=== PATIENT | male | born 1985 | race Caucasian/White ===

== ENCOUNTER 2016-10-09 11:26 | Observation (INO) | payer SELFPAY ==
[~2016-10-09] VITALS: Ht 188 cm; Wt 101.5 kg
--- NOTE | ~2016-10-09 | ER ---
[facility] AGE: 31 Y [address] ROOM: [place] [address] [place] [facility] [place]: 10[place]09[place] ER/Outpatient Report DISCHARGE DATE: FAMILY PHYSICIAN: PHYSICIAN, NO ATTENDING PHYSICIAN: Vicky Forte TIME OF ARRIVAL: 11:26. TIME OF EVALUATION: 11:35. CHIEF COMPLAINT: Alcohol abuse. HISTORY OF PRESENT ILLNESS: The patient is a 31-year-old male, who presented to Emergency Department today with a chief complaint of alcohol abuse. He reports that he was recently kicked out of his Mom's house in [place] due to drinking. He has been going through divorce. He does report that he has been vomiting blood for the past 2 weeks. He reports he is depressed and anxious. He denies any suicidal ideations. No homicidal ideations. No visual hallucinations. No auditory hallucinations. He does report that he is having some sleep difficulties and has not slept in 5 days. He does report some nausea and vomiting. He denies any diarrhea or constipation. He denies any pain currently. PAST MEDICAL HISTORY: 1. ADHD. 2. Seizure disorder with alcohol withdrawl, bipolar depression. PAST SURGICAL HISTORY: Broken foot. SOCIAL HISTORY: The patient denies any tobacco use. He reports he drinks 750 mL of vodka a day, at least one to two bottles. He denies any illicit drug use. ALLERGIES: NO KNOWN DRUG ALLERGIES. MEDICATIONS: Please see list. PRIMARY CARE DOCTOR: None. PATIENT'S NAME: [facility]ASSY [facility] AGE: 31 Y [address] ROOM: [place] [address] [place] [facility] [place]: 10/09/2016 ER/Outpatient Report DISCHARGE DATE: FAMILY PHYSICIAN: PHYSICIAN, NO ATTENDING PHYSICIAN: Vicky Forte REVIEW OF SYSTEMS: All systems are reviewed by myself, and are negative with the exception of those discussed in HPI and past medical history. PHYSICAL EXAMINATION: VITAL SIGNS: Weight is 99.4 kg. Blood pressure was 169/107, pulse was 115, respiratory rate was 18, temperature was 99.2, and oxygen saturation was 94% on room air. GENERAL: The patient is a 31-year-old male, who appears intoxicated. He is very emotional. HEENT: Normocephalic and atraumatic. Pupils are equal, round, and reactive to light. Extraocular motions are intact. Nares are patent bilaterally. Mucous membranes are moist. NECK: Supple. There is no nuchal rigidity. CARDIOVASCULAR: Tachycardic. No murmurs, rubs, or gallops. LUNGS: Clear to auscultation bilaterally. No wheezes, rales, or rhonchi. ABDOMEN: Soft, nontender, and nondistended. No rebound, rigidity, or guarding. MUSCULOSKELETAL: The patient moves all 4 extremities. SKIN: Warm and dry. There are no rashes or lesions noted. LABORATORY DATA AND DIAGNOSTIC STUDIES: Labs and x-rays are obtained. CBC is unremarkable except for hemoglobin of 17.7. Venous blood gas 7.40/50/55/31/5.1. Lactate is 4.0. Coags are normal. Urine drug screen is positive. Benzodiazepine was otherwise negative. EKG is obtained, and is interpreted by myself at 12:09. It showed sinus tachycardia with a rate of 108, normal axis, no ST elevation or ST depression or T-wave inversions. Urinalysis was unremarkable. CMP was unremarkable except for AST of 66 and ALT of 80. EtOH is 0.315. Lipase is normal. CK is normal. Acetaminophen and salicylate are normal. IMPRESSION: 1. Alcohol intoxication. 2. Reported hematemesis. 3. Lactic acidosis. 4. Elevated liver enzymes. 5. Depression. 6. Initial visit. EMERGENCY DEPARTMENT COURSE: The patient was brought back to the Examination Room. Seen and evaluated by myself. IV is established. Laboratory analysis and imaging are obtained as described above. The patient is given a liter of normal saline. He is given a liter of a banana bag. He was given 4 mg of Zofran IV. He was given 1 mg PATIENT'S NAME: KODI MADERA [facility] AGE: 31 Y [address] ROOM: [id number] [place] [id number] [place] [facility] [place]: 10/09/2016 ER/Outpatient Report DISCHARGE DATE: FAMILY PHYSICIAN: PHYSICIAN, NO ATTENDING PHYSICIAN: Vicky Forte IV for anxiety, as well as another milligram of Ativan IV. I have discussed results with the patient and his friends, who are at the bedside. The patient is reporting that he would like to quit. I have contacted the hospitalist, Dr. Forte, who is on-call. He does agree to accept the patient for further evaluation, treatment, and management. DISPOSITION: The patient is admitted under the care of Hospitalist Service and Dr. Forte in stable condition. DO CHA STEPHEN/selenel /[id number] d: 10/09/162005 t: 10/10/16 0937, OUTPATIENT REPORT
--- NOTE | ~2016-10-09 | DS ---
PATIENT'S NAME: KODI MADERA [facility] AGE: 31 Y [address] ROOM: [id number] [place], [place] [address] LOCATION: [facility] [place] ADMIT DATE: 10/09/2016 Discharge Summary DISCHARGE DATE: 10/11/2016 FAMILY PHYSICIAN: Jair Garcia MD ATTENDING PHYSICIAN: Vicky Forte FINAL DIAGNOSES: 1. Acute alcohol intoxication. 2. Alcohol dependence and abuse. 3. Attention-deficit hyperactivity disorder. 4. Gastritis with hematemesis. 5. Depression. HISTORY OF PRESENT ILLNESS: Please see the history and physical dictated by Dr. Forte for full details. In short, patient presented to the emergency room with a blood alcohol level greater than 0.3. He had been kicked out of his mother's home and was essentially homeless. He did state that he would be willing to attend treatment. LABORATORY DATA: On admission, ABG, pH 7.40, pCO2 50, PO2 55. Sodium 145, potassium 4, chloride 106, CO2 27, BUN 14, and creatinine 1. Alkaline phosphatase 70, AST 66, ALT 80. Alcohol level 0.315. Lipase 199, CK 203. Acetaminophen less than 2. Salicylate less than 2.8. These values were stable or improved on discharge. On admission, white blood cell count 4.7, hemoglobin 17.7, hematocrit 51.8, platelet count 192. It was felt that he was dehydrated. On the second hospital day, his white blood cell count 3, hemoglobin 14.3, hematocrit 42.1, platelet count 153. HOSPITAL COURSE: The patient was admitted to the hospital with acute intoxication. He was admitted and placed on the CIWA protocol using Valium. He was given a banana bag. He was seen in evaluation by GI because of the hematemesis. He was placed on an IV Protonix drip. A decision was made that they would take him to do an EGD. EGD did show irritation erosions with some petechial hemorrhage. Please see Dr. Cottrell's op note for full details. In the meantime, the patient did agree to have someone become his power of immigration attorney, Simba Lagos. Arrangements were made for him to transfer to an acute rehab setting. He is going to an [facility] for inpatient treatment. At this point, the patient does agree to attend, . He is going to be going to the [facility] in [place] which is a 4-month program. DISCHARGE MEDICATIONS: 1. Valium 5 mg at bedtime, starting on the . 2. Depakote 500 mg twice daily. PATIENT'S NAME: KODI MADERA [facility] AGE: 31 Y [address] ROOM: [place] [address] LOCATION: [facility] [place] ADMIT DATE: 10/09/2016 Discharge Summary DISCHARGE DATE: 10/11/2016 FAMILY PHYSICIAN: Jair Garcia MD ATTENDING PHYSICIAN: Vicky Forte 3. Protonix 40 mg twice daily. 4. Claritin-D daily as needed. 5. Carafate 1 g before meals and at bedtime. 6. Multivitamin daily. OVERALL PROGNOSIS: At discharge is fair. WANDA GARZON MD LAW/modl /[id number] d: 10/11/161801 t: 10/11/16 1834, DISCHARGE SUMMARY
--- NOTE | ~2016-10-09 | CON ---
PATIENT'S NAME: KODI MADERA [facility] AGE: 31 Y [address] ROOM: [address] [address] LOCATION: [facility] [place] ADMIT DATE: 10/09/2016 Consultation DISCHARGE DATE: FAMILY PHYSICIAN: Jair Garcia MD ATTENDING PHYSICIAN: Vicky Forte DATE OF CONSULTATION: 10/10/2016 DATA: This is a 31-year-old male, currently admitted to [facility]. Consultation requested by Dr. Forte. DIAGNOSES: At the time of this evaluation are: 1. Alcohol-induced disorder. 2. Alcohol-induced depression. 3. Prior history of attention-deficit hyperactivity disorder. 4. Prior history of [place] abuse. RECOMMENDATIONS: 1. The patient is not, at the present time, psychotic, manic, hypomanic, suicidal, or homicidal. He may be discharged whenever he is medically cleared. 2. The patient had a very recent chemical dependency evaluation that recommended rehab. He is already working with [facility] for placement. 3. He already has an appointment with people in [place] for medication management and his psychiatric other issues, so he seems to be covered for those things. What he needs again is rehab so he can stop drinking. HISTORY: This is a known patient for this provider. I saw him once before in November of last year for another episode of drinking. Quite regretfully, he has not gone to rehab since then even though it would have been recommended. The patient, this time around, is telling that he has bipolar disorder, has been diagnosed with bipolar disorder. Nevertheless, the longest that he has been ever hypomanic is 3 or 4 days, not meeting full criteria actually for bipolar II, even less bipolar I. The other part is he has been drinking all this time, so it is difficult to make that kind of assertion or diagnosis in this case. The patient, without drinking, has not been manic, hypomanic, or psychotic. No issues with obsession and compulsion, eating disorder, post-traumatization, or gambling. PAST PSYCHIATRIC HISTORY: Never been hospitalized in a psychiatric facility. No issues with PATIENT'S NAME: KODI MADERA [facility] AGE: 31 Y [address] ROOM: [id number] [place] [id number] LOCATION: [facility] [place] ADMIT DATE: 10/09/2016 Consultation DISCHARGE DATE: FAMILY PHYSICIAN: Jair Garcia MD ATTENDING PHYSICIAN: Vicky Forteity. MEDICAL HISTORY: Per History and Physical. PERSONAL HISTORY: . Full-time employee. Living in [place]. HISTORY OF ABUSE: The patient has never been abused physically, sexually, or psychologically. FAMILY HISTORY: Noncontributory. MENTAL STATUS EXAMINATION: A , young man. Cooperative. Good hygiene. Good eye contact. No psychomotor agitation or retardation. Speech is normal in volume, tone, and production. Mood is described as good, assessed as neutral. Affect is broad and appropriate to thought content. Thought content is relevant. Patient denying any suicidal or homicidal ideation, denying any auditory or visual hallucination, denying delusional thoughts. Thought process coherent, congruent. No loosening of association. Insight and judgment seem to be formally intact, just tainted while intoxicated. Memory is within normal limits. He is alert and oriented, and intelligence is average. STRENGTHS: Intelligence, access to service. BARRIERS: Just substance use. CLEO VERMA MD HG/modl /[id number] d: 10/10/16 1242 t: 10/11/16 0933, CONSULTATION REPORT
--- NOTE | ~2016-10-09 | CON ---
PATIENT'S NAME: CASSY [facility] AGE: 31 Y [address] ROOM: [place] [address] LOCATION: [facility] [place] ADMIT DATE: 10/09/2016 Consultation DISCHARGE DATE: FAMILY PHYSICIAN: PHYSICIAN, NO ATTENDING PHYSICIAN: Vicky Forte DATE OF CONSULTATION: 10/09/2016 REFERRING PHYSICIAN: Vicky Forte MD REASON FOR CONSULTATION: Possible hematemesis. HISTORY OF PRESENT ILLNESS: The patient is a pleasant 31-year-old white male with past medical history significant for bipolar depression, seizure disorders from alcohol withdrawal, as well as prolonged history of alcoholism. He has been referred to us for evaluation of hematemesis. According to the patient, he has had some bleeding from the mouth. He also has had at least 7 episodes of hematemesis. He brings up blood with vomitus. He says today, his bowel movement was dark in color and almost appeared to be dark blood. He has some mild epigastric discomfort. He has some significant heartburn also. ALLERGIES: NO KNOWN DRUG ALLERGIES. MEDICATIONS: As per MAR. PAST SURGICAL HISTORY: Significant for broken foot surgery. SOCIAL HISTORY: He has not smoked recently. He has 750 mL of vodka a day. He has a 1-1/2 year history of heavy drinking since his diagnosis. He has been depressed also since then. FAMILY HISTORY: Noncontributory to this problem. PHYSICAL EXAMINATION: GENERAL: Today, he is alert and awake. He appears to be in no acute distress. VITAL SIGNS: His weight is 99.4 kilos. Pulse of 115 per minute, respiratory rate of 18, blood pressure of 164/107, and oxygen saturation of 94%. HEENT: Revealed no pallor. No icterus. PATIENT'S NAME: CASSY [facility] AGE: 31 Y [address] ROOM: [place] [address] LOC[place]: [facility] [place] ADMIT DATE: 10/09/2016 Consultation DISCHARGE DATE: FAMILY PHYSICIAN: PHYSICIAN, NO ATTENDING PHYSICIAN: Vicky Forte CARDIOVASCULAR: S1 and S2. CHEST: Clear to auscultation bilaterally. No wheezes. No rhonchi. ABDOMEN: Soft and nontender. I do not feel any masses. MUSCULOSKELETAL: No obvious injuries or deformities are seen. NEUROLOGICAL: Grossly nonfocal. LABORATORY DATA: Labs done today showed UA with microscopy that is negative. Complete metabolic screen showed sodium of 140, potassium of 4.0, chloride of 106, bicarb of 27, BUN of 14, creatinine of 1, albumin of 4.0, total bilirubin of 0.4, ALT of 80, AST of 66, and alkaline phosphatase of 70. Alcohol level was 0.315. Lipase is 199. Acetaminophen and salicylates are negative. Urine tox screen is positive for benzodiazepine. Complete blood count showed WBC of 4.7, hemoglobin of 17.7, hematocrit of 51.8, and platelet count of 192. Blood gas shows a pH of 7.4, pO2 of 55, and pCO2 of 50. Lactate is high at 4. IMPRESSION AND PLAN: The patient with a history of alcoholism, presenting with what appears to be hematemesis. He also had some dark stools. There is no active profuse bleeding. His hemoglobin is stable. He is hemodynamically stable. However, in view of the above, we will be proceeding with an upper endoscopy in the morning. The procedure of endoscopy was explained in detail to the patient. All risks including, but not limited to bleeding, perforation, and possible need for surgery were explained. Informed consent was then obtained. MD MADINA AGEE/modl /[id number] d: 10/09/16 2321 t: 10/10/16 1741, CONSULTATION REPORT
--- NOTE | ~2016-10-09 | HP ---
PATIENT'S NAME: [facility] AGE: 31 Y [address] ROOM: [place] [address] LOCATION: [facility] [place] ADMIT DATE: 10/09/2016 History & Physical DISCHARGE DATE: FAMILY PHYSICIAN: PHYSICIAN, NO ATTENDING PHYSICIAN: Vicky Forte DATE OF SERVICE: CHIEF COMPLAINT: Alcohol intoxication. HISTORY OF PRESENT ILLNESS: This is a 31-year-old male with a known history of alcohol abuse and daily alcohol drinking over the past a year and a year and half and recurrent admissions in the past few months for attempts to detoxify. He presents with the same complaint again. The patient was brought to the emergency room with a friend, appearing to be intoxicated. The patient's blood alcohol level was greater than 300 today. During my visitation, the patient is awake, alert, oriented, cooperative, and appears coherent although, appears a little bit intoxicated. The patient tells me that again he truly tried to quit this time, which has been the case in his previous admissions as well. The patient due to his alcohol problems had been essentially homeless and has nowhere else to go if he was to be discharged from the emergency room as well. The patient also mentions having occasional evidences of blood-tinged emesis with his binge drinking. However, he denies any dizziness, lightheadedness, or any signs or symptoms of hemodynamically significant blood loss. Denies any diarrhea, dark looking or tarry stools. The patient otherwise denies any chest pain, shortness of breath, cough, or abdominal pain. Denies any fevers or chills. PAST MEDICAL HISTORY: Alcohol abuse and bipolar disorder. SOCIAL HISTORY: The patient is and has 2 kids. Denies any smoking or drug use. FAMILY HISTORY: The patient has a long history of alcohol abuse in his parents and extended family members. REVIEW OF SYSTEMS: All systems have been reviewed and were all negative except as described in the HPI. PHYSICAL EXAMINATION: [facility] AGE: 31 Y [address] ROOM: [place] [address] LOCATION: [facility] [place] ADMIT DATE: 10/09/2016 History & Physical DISCHARGE DATE: FAMILY PHYSICIAN: PHYSICIAN, NO ATTENDING PHYSICIAN: Vicky Forte VITAL SIGNS: Blood pressure 130/85, pulse 105, respiratory rate 20, saturating 98% on room air. GENERAL: The patient is awake, alert, and oriented x3, in no acute distress. HEENT: Moist mucous membranes. No scleral icterus or conjunctival pallor noted. SKIN: Without rash or lesions. HEART: S1, S2. Regular rate and rhythm. Tachycardic. CHEST: Clear to auscultation bilaterally. ABDOMEN: Soft, nontender, and nondistended with positive bowel sounds. MUSCULOSKELETAL: No joint swelling, erythema, or tenderness noted. NEURO: Grossly nonfocal. LABORATORY DATA: Admission laboratory values reviewed. Mild elevation in AST and ALT. ASSESSMENT AND PLAN: 1. Acute alcohol intoxication. Blood alcohol level greater than 0.3 today. The patient does appear a bit agitated and intoxicated, but overall coherent and cooperative. This is his third admission and similar presentation on asking to detoxify. Attempts for outpatient detoxication and support had been unsuccessful mostly the patient is deemed to be homeless. At this point, I will use Valium taper during hospitalization and work with the Case Management and Psychiatry to find for placement and consider inpatient rehab, although these have been attempted during his previous admissions as well. 2. Alcohol abuse. Management as above. 3. Bipolar disorder. The patient takes Depakote at home and we will continue this. 4. Hematemesis. The patient reports having 2 or 3 episodes over the last couple of weeks, and these episodes tend to occur while his binge drinking and throwing up. H and H's are stable. Hemodynamics are stable. He has no signs and symptoms of ongoing upper GI bleed, and we will just monitor his vital signs and H and H's in the morning. His hemoglobin on admission 17 today. DVT prophylaxis. 5. We will admit the patient. MD RAJNI JOHNSON/carla /[id number] D: [id number] T: [id number] HISTORY & PHYSICAL
[~2016-10-09 11:26] MED LIST: ANTABUSE250 M1 PO; B COMPLETE1 EACH PO; CARAFATE1 GM PO; CATAPRES0.1 MG PO; CENTRUM COMPLE1 EACH PO; CLARITIN D 12 H1 TAB PO; FOCALIN XR40 MG PO; FOCALIN10 MG PO; PEPCID20 MG PO; THIAMINE HCL100 MG PO; TREXAN (REVIA)50 MG PO; VALIUM5 MG PO; VISINE15 ML OPHTH
[2016-10-09 12:04] LABS: BASOPHIL # 0.1 K/uL (0.0-0.2); BASOPHIL % 1.3 %; EOSINOPHIL % 0.4 %; HEMATOCRIT 51.8 % (37.0-53.0); HEMOGLOBIN 17.7 g/dL (12.0-17.0); IMMATURE GRANULOCYTE % 0.2 %; LYMPHOCYTE # 1.6 K/uL (0.8-4.0); LYMPHOCYTE % 33.8 %; MCH 31.6 pg (27.0-34.0); MCHC 34.2 gm/dL (32.0-36.5); MCV 92.3 fl (83.0-98.0); MONOCYTE # 0.5 K/uL (0.0-1.0); MONOCYTE % 9.8 %; MPV 9.8 fl (9.4-12.4); NEUTROPHIL # (ANC) 2.6 K/uL (1.4-9.0); NEUTROPHIL % 54.5 %; NRBC % 0 /100WBC (0-0.00); PCO2 50 mmHg (35-45); PLATELET COUNT 192 K/uL (150-450); PO2 55 mmHg (80-90); RBC 5.61 M/uL (4.00-6.00); WBC 4.7 K/uL (4.0-11.0)
[2016-10-09 12:24] LABS: INR - (THERAPEUTIC) 0.91 (0.92-1.07); PROTIME 9.5 SECONDS (9.8-11.4); PTT 26 SECONDS (25-32)
[2016-10-09 12:27] LABS: BILIRUBIN URINE NEGATIVE (NEGATIVE); BLOOD URINE NEGATIVE /UL (NEGATIVE); COLOR URINE YELLOW (YELLOW); GLUCOSE URINE NEGATIVE (NEGATIVE); KETONE URINE NEGATIVE (NEGATIVE); LEUKOCYTES URINE NEGATIVE /UL (NEGATIVE); NITRITE URINE NEGATIVE (NEGATIVE); PROTEIN URINE 15 mg/dL (NEGATIVE); TURBIDITY URINE CLEAR (CLEAR); UROBILINOGEN URINE NORMAL (NORMAL)
[2016-10-09 12:33] LABS: ALT 80 IU/L (12-78); CHLORIDE 106 mMol/L (96-110); ESTIMATED GFR (MDRD EQUATION) > 60; SODIUM 145 mMol/L (135-145); TOTAL PROTEIN 7.8 g/dL (6.0-8.4)
[2016-10-09 12:45] LABS: BARBITURATE NEGATIVE (NEGATIVE); COCAINE NEGATIVE (NEGATIVE); OPIATES NEGATIVE (NEGATIVE)
[2016-10-09 12:49] LABS: AMPHETAMINE NEGATIVE (NEGATIVE)
[2016-10-09 13:01] LABS: ALK PHOS 70 IU/L (33-138); BLOOD UREA NITROGEN 14 mg/dL (6-24); CALCIUM 8.7 mg/dL (8.5-10.5); CO2 27 mMol/L (22-32); TOTAL BILIRUBIN 0.4 mg/dL (0.0-1.5)
[2016-10-09 13:03] LABS: AST 66 IU/L (10-40)
[2016-10-09 13:04] LABS: CPK 203 IU/L (35-332)
[2016-10-09 13:32] LABS: BACTERIA URINE RARE (NEGATIVE); EPITHELIAL URINE RARE #/HPF (NEGATIVE); RBC URINE RARE #/HPF (NEGATIVE); WBC URINE RARE #/HPF (NEGATIVE)
[2016-10-09] MEDS ORDERED: DEPAKOTE EXTEN500 MG PO (16:27)
[2016-10-09] MEDS ORDERED: [UNRECOGNIZED DRUG - OTHER] PO (16:28)
[2016-10-09] MEDS ORDERED: DHEA TABLET1 EACH PO (16:28)
[2016-10-10 05:13] LABS: BASOPHIL % 1.3 %; EOSINOPHIL # 0.1 K/uL (0.0-0.5); EOSINOPHIL % 1.7 %; HEMATOCRIT 42.1 % (37.0-53.0); HEMOGLOBIN 14.3 g/dL (12.0-17.0); IMMATURE GRANULOCYTE % 0.3 %; LYMPHOCYTE # 0.9 K/uL (0.8-4.0); LYMPHOCYTE % 29.1 %; MCH 31.9 pg (27.0-34.0); MONOCYTE # 0.6 K/uL (0.0-1.0); MONOCYTE % 19.9 %; NEUTROPHIL # (ANC) 1.4 K/uL (1.4-9.0); NEUTROPHIL % 47.7 %; NRBC % 0 /100WBC (0-0.00); RBC 4.48 M/uL (4.00-6.00); RDW-CV 13.9 % (11.9-14.6)
[2016-10-10 05:15] LABS: PLATELET COUNT 153 K/uL (150-450)
[2016-10-10 05:34] LABS: ALBUMIN 3.3 gm/dL (3.5-5.0); ALK PHOS 50 IU/L (33-138); ALT 60 IU/L (12-78); ANION GAP 11.1 (10.0-19.0); AST 42 IU/L (10-40); BLOOD UREA NITROGEN 16 mg/dL (6-24); CALCIUM 8.7 mg/dL (8.5-10.5); CHLORIDE 104 mMol/L (96-110); CO2 31 mMol/L (22-32); CREATININE 0.8 mg/dL (0.6-1.3); ESTIMATED GFR (MDRD EQUATION) > 60; POTASSIUM 4.1 mMol/L (3.7-5.1); SODIUM 142 mMol/L (135-145); TOTAL PROTEIN 6.3 g/dL (6.0-8.4)
[2016-10-10 05:40] LABS: TOTAL BILIRUBIN 0.9 mg/dL (0.0-1.5)
[2016-10-11 05:45] LABS: EOSINOPHIL # 0.1 K/uL (0.0-0.5); EOSINOPHIL % 1.4 %; HEMATOCRIT 43.8 % (37.0-53.0); HEMOGLOBIN 14.9 g/dL (12.0-17.0); IMMATURE GRANULOCYTE % 0.5 %; LYMPHOCYTE # 0.9 K/uL (0.8-4.0); LYMPHOCYTE % 21.3 %; MCH 31.6 pg (27.0-34.0); MCV 92.8 fl (83.0-98.0); MONOCYTE # 0.8 K/uL (0.0-1.0); MONOCYTE % 19.1 %; MPV 10.3 fl (9.4-12.4); NEUTROPHIL # (ANC) 2.4 K/uL (1.4-9.0); NEUTROPHIL % 56.7 %; NRBC % 0 /100WBC (0-0.00); PLATELET COUNT 150 K/uL (150-450); RBC 4.72 M/uL (4.00-6.00); RDW-CV 13.3 % (11.9-14.6); WBC 4.1 K/uL (4.0-11.0)
[2016-10-11 06:04] LABS: ALBUMIN 3.4 gm/dL (3.5-5.0); ALK PHOS 51 IU/L (33-138); ALT 60 IU/L (12-78); ANION GAP 8.9 (10.0-19.0); AST 39 IU/L (10-40); BLOOD UREA NITROGEN 15 mg/dL (6-24); CALCIUM 8.9 mg/dL (8.5-10.5); CHLORIDE 106 mMol/L (96-110); CO2 29 mMol/L (22-32); CREATININE 0.7 mg/dL (0.6-1.3); ESTIMATED GFR (MDRD EQUATION) > 60; MAGNESIUM 2.1 mg/dL (1.8-2.6); POTASSIUM 3.9 mMol/L (3.7-5.1); SODIUM 140 mMol/L (135-145); TOTAL BILIRUBIN 0.7 mg/dL (0.0-1.5); TOTAL PROTEIN 6.4 g/dL (6.0-8.4)
[2016-10-11] MEDS ORDERED: VALIUM5 MG PO (10:18)
[2016-10-11] MEDS ORDERED: PROTONIX40 MG PO (10:19)
== END 2016-10-11 12:45 | disposition other institution (70) ==
LOC: GMED 11:26 → GMSU 13:27
PROVIDERS: Emergency Medicine; ADMIT Internal Medicine
PROC: 0DB68ZX Excision of Stomach, Via Natural or Artificial Opening Endoscopic, Diagnostic (ICD-10-PCS; principal; 2016-10-10)
DX: K92.0 Hematemesis (principal); F10.229 Alcohol dependence with intoxication, unspecified; K31.89 Other diseases of stomach and duodenum; K44.9 Diaphragmatic hernia without obstruction or gangrene; K21.9 Gastro-esophageal reflux disease without esophagitis; F32.9 Major depressive disorder, single episode, unspecified; F41.9 Anxiety disorder, unspecified; F31.9 Bipolar disorder, unspecified; F90.9 Attention-deficit hyperactivity disorder, unspecified type; K29.70 Gastritis, unspecified, without bleeding; Z79.899 Other long term (current) drug therapy
CPT/HCPCS: C9113; G0480; J2060; J2405; J3360; J3411; J7030; J7040; J7050